=== PATIENT | female | born 2000 | race Caucasian/White ===

== ENCOUNTER 2023-04-23 15:24 | Outpatient (REF) | payer OTHER, SELFPAY ==
--- NOTE | ~2023-04-23 | MR_ITS ---
EXAMINATION: MR KNEE WITHOUT CONTRAST, LEFT CLINICAL INFORMATION: Left knee instability COMPARISON: None available. TECHNIQUE: MRI of the knee without contrast was performed using routine sequences on a high-field scanner. FINDINGS: MENISCI: Medial Meniscus: Intact Lateral Meniscus: Small inner margin radial tear at the junction of the body and anterior horn. Soft tissue edema along the periphery of the meniscal body with presumed tearing of the meniscotibial ligament. LIGAMENTS: Cruciate: Intact. Mild edema around the distal ACL suggesting a mild sprain. Collateral: Ill-defined soft tissue edema at the posterolateral aspect of the knee, along the distal aspect of the fibular collateral ligament and the arcuate ligament complex with no definite tear. The biceps femoris insertion and iliotibial band are intact. EXTENSOR MECHANISM: Intact ARTICULAR CARTILAGE/BONE: Patellofemoral Compartment: Normal Medial Compartment: No articular cartilage defect. There is an impaction bone bruise at the peripheral aspect of the weightbearing femoral condyle medially. Lateral Compartment: Minimal edema at the peripheral aspect of the tibia laterally and possible mild contusion to the peripheral aspect of the femoral condyle. JOINT FLUID AND BURSAE: Small joint effusion. MR/MR knee LT wo con IMPRESSION: 1. Small inner margin radial tear of the lateral meniscus at the junction of the body and anterior horn. Probable tearing of the meniscotibial ligament with superficial soft tissue edema, and marrow edema of the lateral tibia peripherally. 2. Possible mild distal ACL sprain. 3. Ill-defined soft tissue edema at the posterolateral aspect of the knee, along the distal aspect of the fibular collateral ligament and arcuate ligament complex with no definite tear. Correlate clinically for symptoms of posterolateral instability. 4. Impaction bone bruise at the peripheral aspect of the weightbearing medial femoral condyle. Small joint effusion.
== END 2023-04-23 15:25 | disposition home or self-care (01) ==
LOC: HO.MRI 15:24
PROVIDERS: Visit Provider Student in an Organized Health Care Education/Training Program
DX: M25.362 Other instability, left knee (principal); M25.552 Pain in left hip; M25.562 Pain in left knee; S83.282A Other tear of lateral meniscus, current injury, left knee, initial encounter; X58.XXXA Exposure to other specified factors, initial encounter; Y93.9 Activity, unspecified; Y92.9 Unspecified place or not applicable; Y99.9 Unspecified external cause status
CPT/HCPCS: 73721